=== PATIENT | female | born 1980 | race Caucasian/White ===

== ENCOUNTER 2018-09-23 09:27 | Inpatient (IN) ==
[2018-09-23] MEDS ORDERED: ZOFRAN ODT PO PRN (12:22)
[2018-09-23] MEDS ORDERED: IMODIUM PO PRN (12:22)
[2018-09-23] MEDS ORDERED: TYLENOL PO PRN (12:22)
[2018-09-23] MEDS ORDERED: TUBERSOL ID ONE (12:22)
[2018-09-23] MEDS ORDERED: SENOKOT PO PRN (12:22)
[2018-09-23] MEDS ORDERED: MOTRIN PO PRN (12:22)
[2018-09-23] MEDS ORDERED: PHENOBARBITAL IV PRN (12:22)
[2018-09-23] MEDS ORDERED: DULCOLAX PR PRN (12:22)
[2018-09-23] MEDS ORDERED: LIBRIUM PO PRN (12:22)
[2018-09-23] MEDS ORDERED: ZOFRAN IV PRN (12:22)
[2018-09-23] MEDS ORDERED: MAALOX PLUS LIQUID PO PRN (12:22)
[2018-09-23] MEDS ORDERED: ROBAXIN PO PRN (12:22)
[2018-09-23] MEDS ORDERED: ATARAX PO PRN (12:22)
[2018-09-23] MEDS ORDERED: SEROQUEL PO PRN (12:22)
[2018-09-23] MEDS ORDERED: SINEMET 25/100 PO PRN (12:22)
[2018-09-23] MEDS ORDERED: D5W 1,000 ML IV PRN (12:22)
[2018-09-23] MEDS ORDERED: DESYREL PO PRN (12:22)
[2018-09-23] MEDS ORDERED: BENTYL PO PRN (12:22)
[2018-09-23] MEDS ORDERED: FLU VACCINE IM ONE (12:49)
[2018-09-23] MEDS: NICODERM PATCH TD PRN (12:54)
[2018-09-23 13:06] LABS: HEMATOCRIT 41.1 % (37.0-47.0); HEMOGLOBIN 13.8 g/dL (12.0-16.0); MCHC 33.6 g/dL (33-37); MCV 83.4 FL (81-99); MPV 9.9 FL (7.4-10.4); RBC 4.93 XMIL (4.2-5.4); RDW 14.3 % (11.5-14.5); WBC 18.31 X1000 (4.8-10.8)
[2018-09-23 13:06] LABS: URINE SOURCE CLEAN CATCH
[2018-09-23 13:11] LABS: AMYLASE 53 U/L (20-200); LIPASE 42 U/L (13-60)
[2018-09-23 13:14] LABS: AGAP 13; ALBUMIN 3.5 g/dL (3.5-5.0); ALKALINE PHOSPHATASE 125 U/L (32-104); BUN 11 mg/dL (8-22); CALCIUM 9.4 mg/dL (8.8-10.2); CHLORIDE 97 mmol/L (98-107); COSMO 276; CREATININE 0.4 mg/dL (0.5-0.9); ESTIMATED GFR > 60; GLUCOSE 87 mg/dL (70-104); GOT 21 U/L (10-30); GPT 27 U/L (10-36); POTASSIUM 4.3 mmol/L (3.5-5.1); SODIUM 139 mmol/L (136-145); TCO2 29 mmol/L (25-35); TOTAL PROTEIN 7.3 g/dL (6.3-8.3)
[2018-09-23 13:18] LABS: BILIRUBIN URINE NEGATIVE (NEGATIVE); BLOOD URINE TRACE (NEGATIVE); CLARITY SL. CLOUDY (CLEAR); COLOR YELLOW; GLUCOSE URINE NEGATIVE (NEGATIVE); KETONE URINE NEGATIVE (NEGATIVE); LEUKOCYTES URINE 1+ (NEGATIVE); NITRITE URINE POSITIVE (NEGATIVE); PH URINE 6.5; PROTEIN URINE 2+(100 mg/dL) mg/dL (NEGATIVE); SP GRAVITY URINE 1.015; UROBILINOGEN URINE NORMAL
[2018-09-23 13:20] LABS: INR 0.88; PROTIME 12.4 Seconds (11.0-16.0)
[2018-09-23 13:30] LABS: UR AMPHETAMINES QUAL NONE DETECTED (NONE DETECT); UR BARBITUATES QUAL NONE DETECTED (NONE DETECT); UR BENZODIAZEPIN QUAL NONE DETECTED (NONE DETECT); UR CANNABINOIDS QUAL PRESUMPTIVE POSITIVE (NONE DETECT); UR COCAINE QUAL NONE DETECTED (NONE DETECT); UR METHADONE QUAL NONE DETECTED (NONE DETECT); UR METHAMPHETAMINE QUAL NONE DETECTED (NONE DETECT); UR OPIATES QUAL PRESUMPTIVE POSITIVE (NONE DETECT); UR OXYCODONE QUAL NONE DETECTED (NONE DETECT); UR PCP QUAL NONE DETECTED (NONE DETECT); UR PROPOXYPHENE QUAL NONE DETECTED (NONE DETECT); UR TCA QUAL NONE DETECTED (NONE DETECT)
[2018-09-23 13:33] LABS: URINE BACTERIA 2+ /HFP; URINE CAST NONE SEEN /LPF; URINE CRYSTAL NONE SEEN /HPF; URINE EPITHELIAL CELLS <10 /HPF (<10); URINE RBC <10 /HPF (<10); URINE WBC 20-40 /HPF (<10); URINE YEAST NONE SEEN /HPF
[2018-09-23] MEDS: SUBUTEX SL SCH (17:51)
[2018-09-24] MEDS: SUBUTEX SL SCH (01:37)
[2018-09-24] MEDS: PROTONIX PO SCH (06:15)
[2018-09-24] MEDS: FOLIC ACID PO SCH (09:10)
[2018-09-24] MEDS: VITAMIN B-1 PO SCH (09:10)
[2018-09-24] MEDS: THERA M PLUS PO SCH (09:10)
[2018-09-24] MEDS: SUBOXONE 2 MG/0.5 MG FILM SL SCH (17:56)
--- NOTE | 2018-09-24 23:01 | PROGRESS NOTE ---
DATE: 09/24/2018 SUBJECTIVE: The patient notes that she is starting to feel better with the addition of Suboxone. Denies any chest pain or palpitations. Denies any diarrhea, dysuria or frequency. OBJECTIVE: Vital Signs: She is afebrile. Vital signs reviewed and stable. HEENT: Normocephalic. Neck: Supple. Cardiovascular: Regular rate. No murmurs. Chest: Clear and nonlabored. Abdomen: Soft and nondistended. Extremities: Moves all extremities. Neurologic: No changes. ASSESSMENT: 1. Nausea and vomiting. 2. Abdominal pain. 3. Myalgias. 4. Paresthesias. 5. Polysubstance use and abuse. 6. Urinary tract infection. 7. Leukocytosis. PLAN: Continue the patient in the hospital. Continue Suboxone, wean as tolerated. Place her on antibiotics. We will await culture and we will follow. Continue counseling. cc: Nader Montesinos MD
[2018-09-25] MEDS: ROCEPHIN 1 GM in NS 50 ML IV SCH ×2 (05:57→08:07)
[2018-09-25] MEDS: PROTONIX PO SCH (06:00)
[2018-09-25] MEDS: SUBOXONE 2 MG/0.5 MG FILM SL SCH ×3 (06:00→17:50)
[2018-09-25] MEDS: NICODERM PATCH TD PRN (09:21)
[2018-09-25] MEDS: THERA M PLUS PO SCH (09:21)
[2018-09-25] MEDS: VITAMIN B-1 PO SCH (09:21)
[2018-09-25] MEDS: FOLIC ACID PO SCH (09:22)
--- NOTE | 2018-09-26 00:38 | PROGRESS NOTE ---
DATE: 09/25/2018 SUBJECTIVE: Patient notes overall she is feeling better although still having some muscle aches and still very worried about use and abuse. OBJECTIVE: Vital Signs: She is afebrile. Vital signs stable. General: Patient is awake, alert, currently in no distress. HEENT: Normocephalic. Neck: Supple. Cardiovascular: Regular rate. No murmurs. Chest: Clear and unlabored. Abdomen: Soft, nondistended. Extremities: Moves all extremities. ASSESSMENT: 1. Nausea, vomiting. 2. Abdominal pain. 3. Myalgias. 4. Paresthesias. 5. Paroxysmal sweating. 6. Polysubstance use and abuse. PLAN: We will continue patient in the hospital. Continue counseling. She is tolerating Suboxone 4 mg twice daily. The patient notes that she is going to forego breast-feeding in the effort of staying clean. She is going to stay on Suboxone as it is helping her not use and abuse currently. Hopefully home over the next 1 or 2 days. cc: Nader Montesinos MD
[2018-09-26] MEDS: SUBOXONE 2 MG/0.5 MG FILM SL SCH (06:18)
[2018-09-26] MEDS: ROCEPHIN 1 GM in NS 50 ML IV SCH (06:18)
[2018-09-26] MEDS: PROTONIX PO SCH (06:18)
[2018-09-26] MEDS: THERA M PLUS PO SCH (08:27)
[2018-09-26] MEDS: FOLIC ACID PO SCH (08:27)
[2018-09-26] MEDS: VITAMIN B-1 PO SCH (08:27)
[2018-09-26] MEDS ORDERED: SUBOXONE 2 MG/0.5 MG FILM SL SCH (09:00)
[2018-09-26] MEDS: NICODERM PATCH TD PRN (12:00)
[2018-09-26 12:07] VITALS: BP 116/97
--- NOTE | 2018-09-27 19:54 | HISTORY AND PHYSICAL ---
CHIEF COMPLAINT: Nausea, vomiting. HISTORY OF PRESENT ILLNESS: The patient is a 38-year-old female who [facility] secondary to polysubstance use and abuse. The patient notes that withdrawal symptoms become too severe and she starts using again. She states she does not want to continue to use and wants to get her life back and be able care for family. SOCIAL HISTORY: She is single, she is unemployed, lives at home in [place]. PAST MEDICAL HISTORY: She just recently had a child September [facility] at [facility]. She has a history of eating disorder, she has chronic anxiety, frequent bronchitis. MEDICATIONS: No prescription medications. ALLERGIES: No known drug allergies. REVIEW OF SYSTEMS: CINA score is elevated mildly at 6 due to myalgias, anxiety, she does have some nausea, restlessness, insomnia, she has frequent changes in temperature. She is unable sit still. She is very jittery nervous anxious, constantly feels scared and worried. Denies any chest pain, palpitation, denies any fevers, denies dysuria, frequency, urgency, hesitancy, polyuria, polydipsia, denies any skin rashes, weight loss or weight gain. SUBSTANCE ABUSE HISTORY: The patient notes that [facility] is involved with her recent delivery. Notes that she wants to keep her baby and that drug use is not a good life for the child. She has been in treatment for anxiety as an outpatient since 2003 started in [facility]. Started using marijuana at age 17 currently has been using every day. Started amphetamines at age 21 has been using off and on, recently she has been smoking every day. Started opiates at age 38 and typically only uses what she gets by prescription. States she has only used [address] Started smoking at 17 currently smokes a pack a day. FAMILY HISTORY: Noncontributory to her current situation with methamphetamine although she notes she has a sister who uses opiates and alcohol on a regular basis. PHYSICAL: Vital Signs: Reviewed and stable. She is awake, alert. She is in no current respiratory distress. HEENT: Normocephalic, atraumatic. FLORA. Neck: Supple. CV: Regular rate, no murmurs. Chest: Clear nonlabored. Abdomen: Soft, nondistended, nontender. Extremities: Moves all extremities. Neuro: No focal changes. Skin: Warm, dry, no rashes. ASSESSMENT: 1. Nausea, vomiting. 2. Abdominal pain. 3. Myalgias. 4. Paresthesias. 5. Paroxysmal sweating. 6. Chronic anxiety. 7. Chronic tobacco abuse discussed patient reports stop smoking. 8. Chronic substance use and abuse. PLAN: Will admit patient to the hospital through [facility], will place her on Suboxone to wean off her polysubstance. Although Suboxone is not clinically indicated for amphetamine use it does certainly help to wean folks down. We will attempt to wean her off if tolerated. cc: Nader Montesinos MD
--- NOTE | 2018-09-28 01:44 | DISCHARGE SUMMARY ---
ADMISSION DATE: 09/23/2018 DISCHARGE DATE: 09/26/2018 DISCHARGE DIAGNOSIS: 1. Nausea, vomiting. 2. Tremors. 3. Paresthesias. 4. Paroxysmal sweating. 5. Polysubstance use and abuse. 6. Chronic tobacco abuse. CONSULTATIONS: None. PROCEDURES: None. BRIEF HOSPITAL COURSE: Patient is a 38-year-old female who presented to [facility] secondary to polysubstance use and abuse. She was admitted to the hospital, placed on Suboxone which she tolerated very well. However, she did not tolerate weaning the dose and remained on 4 mg. She stated after a day and a half on 4 mg that was the first time in her recent memory that she was not craving drugs and that she did not want to use. States that she was feeling tremendously better and asked if it was possible that she remain on Suboxone for the time being. DISPOSITION: Patient will be discharged home. While she was in the hospital, she was noted to have an E coli UTI. We did place her on antibiotics and we will discharge her home on antibiotics for another 5 days total treatment. Discussed with patient that Suboxone is not something she wants to stay on indefinitely but certainly for right now to teach her to live life without using and abusing amphetamines it is certainly acceptable to do so. Prescription was written. Discussed her that she needs to avoid all persons, places, situations that she has been using and abusing. Discussed this unfortunately includes her sister until her sister decides that she wants to get her life clean as well. Discussed with her the analogy that most people will use if they are around it long enough just as if you are sitting watching someone to eat long enough you will get hungry and will eat even though you had no intent to do so to start with. She will follow up outpatient with treatment facility of choice. cc: Nader Montesinos MD
== END 2018-09-26 17:06 | disposition home or self-care (01) | DRG 897 ==
LOC: EDBD → P.MEDSURG 11:21
PROVIDERS: ADMIT Family Medicine; ATTEND Family Medicine
CPT/HCPCS: 80053; 80104; 80301; 80305; 80307; 80320; 81001; 82055; 82150; 83690; 85027; 85610; 87077; 87088; 87186; A9270; G0431; G0434; G0477; G0480; G6040; J0696